=== PATIENT | male | born 1990 | race Caucasian/White ===

== ENCOUNTER 2023-11-18 16:07 | Outpatient (CLI) | payer BC | END 2023-11-18 16:08 | disposition home or self-care (01) | LOC: BICRAD 16:07 | PROVIDERS: ATTEND Family Medicine | DX: M54.6 Pain in thoracic spine (principal); M48.54XA Collapsed vertebra, not elsewhere classified, thoracic region, initial encounter for fracture | CPT/HCPCS: 72072 ==

== ENCOUNTER 2023-12-10 16:03 | Outpatient (CLI) | payer BC | END 2023-12-10 16:04 | disposition home or self-care (01) | LOC: SCSRAD 16:03 | PROVIDERS: ATTEND Family Medicine | DX: J84.10 Pulmonary fibrosis, unspecified (principal); M54.6 Pain in thoracic spine; M43.8X5 Other specified deforming dorsopathies, thoracolumbar region | CPT/HCPCS: 71046; 72040; 72100 ==

== ENCOUNTER 2024-04-27 08:38 | Outpatient (CLI) | payer BC | END 2024-04-27 08:39 | disposition home or self-care (01) | LOC: BICMRI 08:38 | PROVIDERS: ATTEND Family Medicine | DX: R93.7 Abnormal findings on diagnostic imaging of other parts of musculoskeletal system (principal); M47.814 Spondylosis without myelopathy or radiculopathy, thoracic region | CPT/HCPCS: 72146 ==